=== PATIENT | male | born 1940 | race Two or more races ===

== ENCOUNTER → 2024-06-05 | Outpatient (CLI) | payer MEDICARE, BC, SELFPAY ==
--- NOTE | 2024-06-05 | XR_ITS ---
Examination: CT abdomen, without intravenous contrast. CT pelvis, without intravenous contrast. CT abdomen, with intravenous contrast. CT pelvis, with intravenous contrast. 2-D sagittal coronal reconstructions. Date and time of exam:June 05, 2024 1227 hours Comparison 03/08/2024 INDICATIONS: Diagnosis gastrointestinal stromal tumor, marked prostatomegaly CTDI: vol (mGy) 23.2 DLP: (mGycm) 1023 Technique: Multiple 3.0 axial images of the abdomen and pelvis without intravenous contrast, 3.0 mm slice thickness. Multiple 3.0 postcontrast images abdomen and pelvis also obtained, post intravenous injection 30 cc [id number] 2-D sagittal and coronal reconstructions. Low dose protocols were performed. One or more of the following dose reduction techniques were used; automated exposure control, adjustment of the mA and/or KV according to patient size, use of iterative reconstruction technique. Findings: Again noted 6 mm pulmonary nodule right lower lobe Mucosal increased density in the fundus of the stomach No focal liver lesions Gallstones Splenic calcifications No pancreatic mass Mild nodular thickening left adrenal gland No left hydronephrosis Absent right kidney Normal appendix No bowel obstruction Colonic diverticulosis Contracted urinary bladder with mild wall thickening Massive prostatomegaly, transverse dimension 7.4 cm irregular contour Small fat-containing inguinal hernias Severe osteopenia IMPRESSION: No left hydronephrosis Normal appendix Cholelithiasis Massive prostatomegaly Poorly defined masslike area in the fundus of the stomach, clinical correlation advised
== END | disposition home or self-care (01) ==
PROVIDERS: PCP Internal Medicine Medical Oncology; Referring Provider Internal Medicine Medical Oncology; Visit Provider Internal Medicine Medical Oncology
DX: K80.20 Calculus of gallbladder without cholecystitis without obstruction (principal); N40.0 Benign prostatic hyperplasia without lower urinary tract symptoms; C49.A0 Gastrointestinal stromal tumor, unspecified site
CPT/HCPCS: 74178; A4649; Q9967

== ENCOUNTER → 2024-09-07 | Outpatient (CLI) | payer MEDICARE, BC, SELFPAY ==
--- NOTE | 2024-09-07 10:00 | XR_ITS ---
Examination: CT abdomen with intravenous contrast CT pelvis with intravenous contrast 2-D coronal reconstructions 2-D sagittal reconstructions Date and time of exam:September 07, 2024 at 0951 hrs. Comparison June 05, 2024. Indications: Gastrointestinal stromal tumor diagnosis, restaging. CTDI: vol (mGy) 15.6 DLP: (mGycm) 533 Technique: Multiple axial sections of the abdomen and pelvis have been obtained. 64 slice high-resolution scanner used. 3 mm axial sections have been obtained, post intravenous injection 30 cc [id number] 2-D sagittal, coronal reconstructions obtained. Low dose protocols were performed. One or more of the following dose reduction techniques were used; automated exposure control, adjustment of the mA and/or KV according to patient size, use of iterative reconstruction technique. Findings: Trace pericardial thickening Again noted diffuse thickening of the gastric mucosa, measuring up to 20 mm No gallstones No liver or splenic lesion, small splenic calcifications Minimal nodular thickening left adrenal gland Absent right kidney No abdominal or pelvic lymphadenopathy No bowel obstruction Scattered colonic diverticulosis Massive prostatomegaly, AP dimension 6.7 cm Urinary bladder wall thickening up to 6 mm Impression: Again noted diffuse thickening of the gastric mucosa Minimal nodular thickening left adrenal gland No interval abdominal or pelvic lymphadenopathy Again noted massive prostatomegaly
== END | disposition home or self-care (01) ==
PROVIDERS: Referring Provider Internal Medicine Medical Oncology; Visit Provider Internal Medicine Medical Oncology
DX: E27.8 Other specified disorders of adrenal gland (principal); K31.89 Other diseases of stomach and duodenum; C49.A0 Gastrointestinal stromal tumor, unspecified site
CPT/HCPCS: 74177; A4649; Q9967

== ENCOUNTER → 2025-01-04 | Outpatient (CLI) | payer MEDICARE, BC, SELFPAY ==
--- NOTE | 2025-01-04 10:00 | XR_ITS ---
Examination: CT abdomen and pelvis without contrast. Coronal 3-D reconstructions. Sagittal 2-D reconstructions. Date and time of exam:January 04, 2025 1006 hours COMPARISON: 2024 INDICATIONS: Gastrointestinal stromal tumor diagnosis one year ago, restaging CTDI: vol (mGy): 8.08 DLP: (mGycm): 470 Technique: Axial images of the abdomen have been obtained, 3 mm slice thickness Intravenous contrast material has not been administered. Low dose protocols were performed. One or more of the following dose reduction techniques were used; automated exposure control, adjustment of the mA and/or KV according to patient size, use of iterative reconstruction technique. Findings: 4 mm pulmonary nodule right lower lobe Gastric mucosa exhibits less thickening compared to the September 07 2024 exam No interval focal liver or splenic lesions No pancreatic or adrenal mass No interval abdominal or pelvic lymphadenopathy Absent right kidney No left hydronephrosis No bowel obstruction No diverticulitis, scattered colonic diverticulosis Marked prostatomegaly AP dimension 7.2 cm Severe osteopenia IMPRESSION: 4 mm pulmonary nodule right lower lobe, recommend CT chest without intravenous contrast follow-up to exclude pulmonary nodular metastatic disease Gastric mucosa appears less prominent on the current examination No interval abdominal or pelvic lymphadenopathy Massive prostatomegaly again noted
== END | disposition home or self-care (01) ==
PROVIDERS: PCP Internal Medicine Cardiovascular Disease; Referring Provider Internal Medicine Medical Oncology; Visit Provider Internal Medicine Medical Oncology
DX: R91.1 Solitary pulmonary nodule (principal); C49.A0 Gastrointestinal stromal tumor, unspecified site
CPT/HCPCS: 74176

== ENCOUNTER → 2025-05-15 | Outpatient (CLI) | payer MEDICARE, BC, SELFPAY ==
--- NOTE | 2025-05-15 10:11 | XR_ITS ---
Examination: CT abdomen and pelvis without contrast. Coronal 3-D reconstructions. Sagittal 2-D reconstructions. Date and time of exam: May 15, 2025, 1002 hours COMPARISON: January 04, 2025 INDICATIONS: Diagnosis gastrointestinal stromal tumor diagnosed 4 months ago restaging CTDI: vol (mGy): 8.98 DLP: (mGycm): 519 Technique: Axial images of the abdomen have been obtained, 3 mm slice thickness Intravenous contrast material has not been administered. Low dose protocols were performed. One or more of the following dose reduction techniques were used; automated exposure control, adjustment of the mA and/or KV according to patient size, use of iterative reconstruction technique. Findings: Retrocardiac gastric hernia Mucosal thickening in the antrum of the stomach No focal liver lesions No gallstones Splenic calcifications No pancreatic or adrenal mass Absent right kidney Left perinephric stranding Abdominal aortic calcification Normal appendix No bowel obstruction Massive prostatomegaly, AP dimension 7.6 cm impinging upon the rectum Contracted urinary bladder Prominent osteopenia IMPRESSION: Mucosal thickening in the antrum of the stomach, clinical correlation advised No adrenal mass lesion Left perinephric stranding Massive prostatomegaly, recommend correlation with PSA
== END | disposition home or self-care (01) ==
LOC: CCTX 09:39
PROVIDERS: PCP Internal Medicine Medical Oncology; Referring Provider Internal Medicine Medical Oncology; Visit Provider Internal Medicine Medical Oncology
DX: N28.89 Other specified disorders of kidney and ureter (principal); N40.0 Benign prostatic hyperplasia without lower urinary tract symptoms; K31.89 Other diseases of stomach and duodenum; C49.A0 Gastrointestinal stromal tumor, unspecified site
CPT/HCPCS: 74176